=== PATIENT | female | born 1945 | race Two or more races ===

== ENCOUNTER 2022-07-27 08:25 | Inpatient (IN) | payer OTHER, MEDICARE, MEDICAID ==
[~2022-07-27] VITALS: Ht 154.9 cm; Wt 65.8 kg
[2022-07-27] MEDS ORDERED: SODIUM CHLORIDE 0.9% 1,000 ML IV ONE (09:15)
[2022-07-27] MEDS ORDERED: KETOROLAC TROMETH 30 MG/ML 1ML VIAL IV ONE (09:15)
[2022-07-27 09:18] LABS: Urine Bacteria NONE SEEN /hpf (None Seen); Urine Blood 3+ /uL (Negative); Urine Budding Yeast MODERATE /hpf (None Seen); Urine Mucus FEW (None Seen); Urine WBC 1429 /hpf (0 - 5); Urine WBC Clumps PRESENT /hpf (None Seen)
[2022-07-27 09:25] LABS: Basophils # (auto) 0.1 10 ^3/uL (0-0.2); Basophils % (auto) 0.6 % (0.0-2.0); Eosinophils # (auto) 0.1 10 ^3/uL (0-0.8); Eosinophils % (auto) 0.6 % (0.0-7.0); Hematocrit 41.4 % (36.0-46.0); Lymphocytes # (auto) 1.2 10 ^3/uL (0.4-5.4); Lymphocytes % (auto) 12.6 % (10.0-50.0); Mean Corpuscular Hemoglobin 31.6 pg (28.0-32.0); Mean Corpuscular Hgb Conc. 33.9 g/dL (32.0-36.0); Monocytes # (auto) 0.4 10 ^3/uL (0-1.3); Monocytes % (auto) 3.7 % (0.0-12.0); Neutrophils # (auto) 8.1 10 ^3/uL (1.6-8.6); Neutrophils % (auto) 82.5 % (37.0-80.0); Red Blood Cells 4.45 10^6/uL (4.0-5.20); White Blood Cell 9.8 10^3/uL (4.4-10.8)
[2022-07-27 09:43] LABS: INR 0.96 (0.9-1.15)
[2022-07-27] MEDS ORDERED: SODIUM CHLORIDE 0.9% 500 ML IV ONE (09:45)
[2022-07-27 09:46] LABS: Albumin 3.3 g/dL (3.4-5.0); Calcium 8.4 mg/dL (8.5-10.1)
[2022-07-27 09:50] LABS: BUN/Creatinine Ratio 26.5 (10.0-20.0); Bilirubin, Total 0.3 mg/dL (0.2-1.0); Total Protein 6.7 g/dL (6.4-8.2)
[2022-07-27] MEDS ORDERED: cefTRIAXone 1GM/50ML D5W 50 ML IV ONE ×2 (10:00→11:00)
[2022-07-27 10:10] LABS: Potassium 4.1 mmol/L (3.5-5.1)
[2022-07-27] MEDS ORDERED: ACETAMINOPHEN 325 MG TAB PO PRN (11:00)
[2022-07-27] MEDS ORDERED: KETOROLAC TROMETH 30 MG/ML 1ML VIAL IV PRN (11:00)
[2022-07-27] MEDS: SODIUM CHLORIDE 0.9% 1,000 ML IV SCH ×2 (11:33→21:00)
[2022-07-27] MEDS ORDERED: DEXTROSE (50%) 50ML SYRG IV PRN (12:15)
[2022-07-27] MEDS ORDERED: InsuLIN REG 1unit/0.01ml Soln (100units/ml) SC SCH (17:00)
[2022-07-27] MEDS ORDERED: ACCU-CHEK COMFORT CURVE STRIP VI SCH (17:00)
[2022-07-27] MEDS ORDERED: DOCUSATE SOD 100 MG CAP PO PRN (19:15)
[2022-07-28] MEDS: hydrALAZINE HCL 20 MG/ML VL IV PRN (03:55)
[2022-07-28 06:30] LABS: Basophils # (auto) 0 10 ^3/uL (0-0.2); Basophils % (auto) 0.8 % (0.0-2.0); Eosinophils # (auto) 0 10 ^3/uL (0-0.8); Eosinophils % (auto) 0.7 % (0.0-7.0); Hematocrit 39.6 % (36.0-46.0); Hemoglobin 13.6 g/dL (12.2-16.2); Lymphocytes % (auto) 16.4 % (10.0-50.0); Mean Corpuscular Hemoglobin 31.7 pg (28.0-32.0); Mean Corpuscular Hgb Conc. 34.4 g/dL (32.0-36.0); Mean Corpuscular Volume 92.2 fL (80.0-100.0); Monocytes # (auto) 0.2 10 ^3/uL (0-1.3); Monocytes % (auto) 3.9 % (0.0-12.0); Neutrophils # (auto) 4.7 10 ^3/uL (1.6-8.6); Neutrophils % (auto) 78.2 % (37.0-80.0); Nucleated Red Blood Cells % 0.5 %; Red Blood Cells 4.29 10^6/uL (4.0-5.20); Red Cell Distribution Width 14.1 % (11.8-14.3); White Blood Cell 6.1 10^3/uL (4.4-10.8)
[2022-07-28] MEDS: SODIUM CHLORIDE 0.9% 1,000 ML IV SCH ×2 (06:38→17:00)
[2022-07-28 07:02] LABS: BUN/Creatinine Ratio 30.3 (10.0-20.0); Bilirubin, Total 0.4 mg/dL (0.2-1.0); Calcium 8.1 mg/dL (8.5-10.1); Total Protein 6.3 g/dL (6.4-8.2)
[2022-07-28] MEDS: cefTRIAXone 1GM/50ML D5W 50 ML IV SCH (10:11)
[2022-07-28] MEDS ORDERED: TRAM50TA2 PO (21:17)
[2022-07-28] MEDS ORDERED: HYDR25TA87 PO (21:18)
[2022-07-28] MEDS ORDERED: LOSA25TA38 PO (21:19)
[2022-07-28] MEDS ORDERED: DIP25C PO (21:20)
[2022-07-28] MEDS ORDERED: MECL25TA18 PO (21:22)
[2022-07-28] MEDS ORDERED: TEMA7.5C11 PO (21:22)
[2022-07-28 21:38] LABS: Hepatitis C Antibody Negative (Negative)
[2022-07-28 22:00] VITALS: BP 146/42
[2022-07-29] MEDS: SODIUM CHLORIDE 0.9% 1,000 ML IV SCH ×2 (03:00→12:37)
[2022-07-29 05:00] VITALS: BP 132/46
[2022-07-29 06:00] LABS: Basophils # (auto) 0 10 ^3/uL (0-0.2); Basophils % (auto) 0.3 % (0.0-2.0); Eosinophils # (auto) 0 10 ^3/uL (0-0.8); Eosinophils % (auto) 0.8 % (0.0-7.0); Hematocrit 40.5 % (36.0-46.0); Hemoglobin 13.6 g/dL (12.2-16.2); Lymphocytes # (auto) 1.2 10 ^3/uL (0.4-5.4); Lymphocytes % (auto) 21.3 % (10.0-50.0); Mean Corpuscular Hemoglobin 31.2 pg (28.0-32.0); Mean Corpuscular Hgb Conc. 33.6 g/dL (32.0-36.0); Mean Corpuscular Volume 92.8 fL (80.0-100.0); Monocytes # (auto) 0.3 10 ^3/uL (0-1.3); Monocytes % (auto) 4.7 % (0.0-12.0); Neutrophils % (auto) 72.9 % (37.0-80.0); Red Blood Cells 4.36 10^6/uL (4.0-5.20); Red Cell Distribution Width 14.1 % (11.8-14.3); White Blood Cell 5.5 10^3/uL (4.4-10.8)
[2022-07-29 06:28] LABS: Calcium 9.1 mg/dL (8.5-10.1)
[2022-07-29 06:31] LABS: BUN/Creatinine Ratio 25.4 (10.0-20.0)
[2022-07-29] MEDS: cefTRIAXone 1GM/50ML D5W 50 ML IV SCH ×2 (09:00→10:34)
[2022-07-29 09:15] VITALS: BP 144/48
[2022-07-29 12:27] VITALS: BP 149/43
[2022-07-29] MEDS: MECLIZINE HCL 25 MG TAB PO PRN (13:52)
[2022-07-29 16:41] VITALS: BP 134/53
[2022-07-29 22:00] VITALS: BP 149/43
[2022-07-30] MEDS: SODIUM CHLORIDE 0.9% 1,000 ML IV SCH ×3 (00:49→18:14)
[2022-07-30 05:00] VITALS: BP 137/40
[2022-07-30 08:00] VITALS: BP 148/47
[2022-07-30] MEDS: cefTRIAXone 1GM/50ML D5W 50 ML IV SCH (09:23)
[2022-07-30 12:00] VITALS: BP 149/42
[2022-07-30 16:00] VITALS: BP 188/68
[2022-07-30] MEDS: hydrALAZINE HCL 20 MG/ML VL IV PRN (18:08)
[2022-07-30 19:53] VITALS: BP 139/57
[2022-07-30] MEDS: MECLIZINE HCL 25 MG TAB PO PRN (19:54)
[2022-07-30 22:00] VITALS: BP 151/48
[2022-07-31 05:00] VITALS: BP 119/54
[2022-07-31] MEDS: SODIUM CHLORIDE 0.9% 1,000 ML IV SCH ×3 (05:00→19:17)
[2022-07-31 09:00] VITALS: BP 138/49
[2022-07-31] MEDS: cefTRIAXone 1GM/50ML D5W 50 ML IV SCH (11:09)
[2022-07-31 13:00] VITALS: BP 152/43
[2022-07-31 17:15] VITALS: BP 142/44
[2022-07-31] MEDS: MECLIZINE HCL 25 MG TAB PO PRN (19:18)
[2022-07-31 22:00] VITALS: BP 156/54
[2022-08-01 05:00] VITALS: BP 149/44
[2022-08-01] MEDS: cefTRIAXone 1GM/50ML D5W 50 ML IV SCH (08:01)
[2022-08-01] MEDS: MECLIZINE HCL 25 MG TAB PO PRN (08:02)
[2022-08-01 09:00] VITALS: BP 134/46
[2022-08-01] MEDS: SODIUM CHLORIDE 0.9% 1,000 ML IV SCH (11:00)
[2022-08-01 12:56] VITALS: BP 153/47
[2022-08-01] MEDS: hydrALAZINE HCL 20 MG/ML VL IV PRN (13:29)
== END 2022-08-01 14:00 | DRG 872 ==
LOC: ER 08:25 → OVERFLOW 11:06 → WEST WING 07-28 13:23
PROVIDERS: ADMIT Nurse Practitioner Family; ATTEND Family Medicine
DX: A41.9 Sepsis, unspecified organism (principal); N30.01 Acute cystitis with hematuria; Z20.822 Contact with and (suspected) exposure to COVID-19; E11.9 Type 2 diabetes mellitus without complications; I10 Essential (primary) hypertension; N28.1 Cyst of kidney, acquired; B96.20 Unspecified Escherichia coli [E. coli] as the cause of diseases classified elsewhere; R29.6 Repeated falls; F17.210 Nicotine dependence, cigarettes, uncomplicated; E83.51 Hypocalcemia
CPT/HCPCS: 36415; 74176; 80048; 80053; 81001; 82962; 83036; 85025; 85610; 86803; 87040; 87086; 87088; 87186; 87340; 87426; 96361; 96365; 96375; 97163; G0378; J0696; J1885

== ENCOUNTER 2023-01-03 11:25 | Emergency (ER) | payer OTHER, MEDICAID ==
[~2023-01-03] VITALS: Ht 154.9 cm; Wt 65.7 kg
[~2023-01-03 11:25] MED LIST: DIPH25CA51 PO; HYDR25TA87 PO; LOSA25TA15 PO; MECL1TAB32 PO; TEMA7.5C11 PO; TRAM50TA2 PO
[2023-01-03 12:24] VITALS: TEMP 97.7; O2SAT 95
[2023-01-03 13:02] VITALS: BP 166/50; PULSE 98; RESP 14
[2023-01-03] MEDS ORDERED: CEPH500C PO (13:05)
[2023-01-03] MEDS ORDERED: TRIA0.1O TOP (13:05)
== END 2023-01-03 13:22 | disposition home or self-care (01) ==
LOC: ER 11:29
DX: L20.9 Atopic dermatitis, unspecified (principal); I10 Essential (primary) hypertension; Z79.899 Other long term (current) drug therapy